=== PATIENT | female | born 1950 | race Caucasian/White ===

== ENCOUNTER 2018-03-05 11:42 | Emergency (ER) | payer BC, OTHER ==
[2018-03-05 12:16] VITALS: BP 124/71
--- NOTE | 2018-03-05 12:24 | UC ---
General HPI - HPI Summary HPI Summary: 2 CUTS ON R 5TH FINGER FROM A GLASS THAT BROKE. NO FB SENSATION OR LIMITED ROM. TETANUS WITHIN 10 YEARS. OCCURED GREEN PIPEFITTER. - History of Current Complaint Chief Complaint: UCLaceration Stated Complaint: RIGHT PINKY LACERATION Time Seen by Provider: 03/05/18 12:13 Hx Obtained From: Patient Hx Last Menstrual Period: n/a Onset/Duration: Sudden Onset Timing: Constant Pain Intensity: 1 - Allergy/Home Medications Allergies/Adverse Reactions: Allergies Allergy/AdvReac Type Severity Reaction Status Date / Time azithromycin Allergy Rash Verified 03/05/18 12:11 erythromycin base Allergy Rash Verified 03/05/18 12:11 Home Medications: Home Medications Albuterol HFA INHALER* [Ventolin HFA Inhaler*] 1 puff INH Q4H PRN 03/05/18 [ History Confirmed 03/05/18] Aspirin [Aspirin Childrens 81 MG] 81 mg PO DAILY 03/05/18 [History Confirmed ] PMH/Surg Hx/FS Hx/Imm Hx Cardiovascular History: Hypertension - Surgical History Surgical History: Yes Surgery Procedure, Year, and Place: 3 C-Sections. Herniorrhaphy, 1973 - Family History Known Family History: Positive: Cardiac Disease, Hypertension - Social History Lives: With Family Alcohol Use: Occasionally Substance Use Type: None Smoking Status (MU): Never Smoked Tobacco - Immunization History Most Recent Influenza Vaccination: December 2013 Most Recent Tetanus Shot: Unknown; pt will check Hx Tetanus, Diphtheria Vaccination: Yes - unsure of data will confirm with PCP on Saturday and update if needed Vaccination Up to Date: Yes Review of Systems All Other Systems Reviewed And Are Negative: Yes Constitutional: Positive: Negative Skin: Positive: Negative Eyes: Positive: Negative ENT: Positive: Negative Respiratory: Positive: Negative Cardiovascular: Positive: Negative Gastrointestinal: Positive: Negative Genitourinary: Positive: Negative Motor: Positive: Negative Neurovascular: Positive: Negative Musculoskeletal: Positive: Negative Neurological: Positive: Negative Psychological: Positive: Negative Physical Exam Triage Information Reviewed: Yes Appearance: Well-Appearing Vital Signs: Initial Vital Signs Temp 97.9 F 03/05/18 12:11 Pulse 76 03/05/18 12:11 Resp 15 03/05/18 12:11 BP 124/71 03/05/18 12:11 Pulse Ox 98 03/05/18 12:11 Vital Signs Reviewed: Yes Eyes: Positive: Conjunctiva Clear ENT: Positive: Normal ENT inspection Neck: Positive: Supple Respiratory: Positive: Lungs clear, Normal breath sounds Cardiovascular: Positive: RRR, No Murmur Abdomen Description: Positive: Nontender, No Organomegaly, Soft Bowel Sounds: Positive: Present Musculoskeletal: Positive: ROM Intact Neurological: Positive: Alert Psychological: Positive: Age Appropriate Behavior Skin Exam: Normal, Other - R 5TH FINGER ULNAR SIDE WITH 2 , 4MM SKIN AVULSIONS. THIN FLAP REMAINS OVER THE PROXIMAL INJURY. MILD BLEEDING. NO FB OR TENDON/ LIGAMNET INJURY. MILD VENOUS BLEEDING. Course/Dx - Course Course Of Treatment: PROCEDURE: TIME OUT. PREP BETADINE. LOCAL WITH 1 % LIDOCAINE. IRRIGATED STERILE NACL. PREP BETADINE, DRAP AND CLOSED WITH SINGLE PURSE STRING STITCH TO EACH SITE WITH NO BLEEDING AFTER. BACITRACIN TO WOUNDS THEN BANDAIDES. PT TOLERATED WELL. STERILE TECHNIQUE USED. - Differential Dx - Multi-Symptom Provider Diagnoses: 2 LACERATIONS R 5TH FINGER Discharge - Sign-Out/Discharge Documenting (check all that apply): Patient Departure All imaging exams completed and their final reports reviewed: No Studies - Discharge Plan Condition: Stable Disposition: HOME Patient Education Materials: Care For Your Stitches (ED) Referrals: Rafael Martinez MD [Primary Care Provider] - 7 Days Additional Instructions: OR RETURN HERE FOR SUTURE REMOVAL - Billing Disposition and Condition Condition: STABLE Disposition: Home
[2018-03-05] MEDS ORDERED: Tetan/Diph/Pertus SYR(Tdap)* 0.5 ML SYR(BOOSTRIX) use SYR IM ONE (12:26)
[2018-03-05] MEDS ORDERED: Lidocaine 1%* 5 ML VIAL INJ ONE (12:28)
== END 2018-03-05 12:59 | disposition home or self-care (01) ==
LOC: UCCORT 11:42
DX: S61.216A Laceration without foreign body of right little finger without damage to nail, initial encounter (principal); W25.XXXA Contact with sharp glass, initial encounter; Y92.9 Unspecified place or not applicable; I10 Essential (primary) hypertension; Z79.82 Long term (current) use of aspirin; Z88.1 Allergy status to other antibiotic agents
CPT/HCPCS: 12001; 99211; G0463

== ENCOUNTER 2018-03-13 07:23 | Emergency (ER) | payer BC ==
[2018-03-13 08:05] VITALS: BP 136/69
--- NOTE | 2018-03-13 08:16 | UC ---
HPI Wound/Suture Re-check - HPI Summary HPI Summary: The patient is a 67-year-old female that presents here for suture removal from her right little finger. Sutures have been in for 8 days. He states that the tip of her right little finger is numb and tingly but denies any other complaints. - History Of Current Complaint Chief Complaint: UCLaceration Stated Complaint: STITCH REMOVAL-DONE HERE Time Seen by Provider: 03/13/18 08:09 Hx Obtained From: Patient Hx Last Menstrual Period: n/a Onset/Duration: Sudden Onset Severity: Mild Pain Intensity: 0 Pain Scale Used: 0-10 Numeric - Allergies/Home Medications Allergies/Adverse Reactions: Allergies Allergy/AdvReac Type Severity Reaction Status Date / Time azithromycin Allergy Rash Verified 03/13/18 08:03 erythromycin base Allergy Rash Verified 03/13/18 08:03 PMH/Surg Hx/FS Hx/Imm Hx Previously Healthy: Yes Endocrine History: Dyslipidemia Cardiovascular History: Hypertension Respiratory History: COPD, Asthma - Surgical History Surgical History: Yes Surgery Procedure, Year, and Place: 3 C-Sections. Herniorrhaphy, 1973 - Family History Known Family History: Positive: Cardiac Disease, Hypertension - Social History Alcohol Use: Occasionally Substance Use Type: None Smoking Status (MU): Never Smoked Tobacco - Immunization History Most Recent Influenza Vaccination: December 2013 Most Recent Tetanus Shot: Unknown Hx Tetanus, Diphtheria Vaccination: Yes - unsure of data will confirm with PCP on Saturday and update if needed Vaccination Up to Date: Yes Review of Systems All Other Systems Reviewed And Are Negative: Yes Constitutional: Positive: Negative Skin: Positive: Negative Eyes: Positive: Negative ENT: Positive: Negative Respiratory: Positive: Negative Cardiovascular: Positive: Negative Gastrointestinal: Positive: Negative Genitourinary: Positive: Negative Motor: Positive: Negative Neurovascular: Positive: Decreased Sensation - RLF Musculoskeletal: Positive: Negative Neurological: Positive: Negative Psychological: Positive: Negative Physical Exam Triage Information Reviewed: Yes Appearance: Well-Appearing, No Pain Distress, Well-Nourished Vital Signs: Initial Vital Signs Temp 97.7 F 03/13/18 08:02 Pulse 79 03/13/18 08:02 Resp 16 03/13/18 08:02 BP 136/69 03/13/18 08:02 Pulse Ox 96 03/13/18 08:02 Vital Signs Reviewed: Yes Eyes: Positive: Conjunctiva Clear ENT: Positive: Hearing grossly normal. Negative: Nasal congestion, Nasal drainage, Trismus, Muffled voice Neck exam: Normal Neck: Positive: Supple, Nontender, No Lymphadenopathy Respiratory: Positive: Lungs clear, Normal breath sounds, No respiratory distress Cardiovascular: Positive: RRR, No Murmur Skin Exam: Other - healing RLF lacs Course/Dx - Course Course Of Treatment: 2 pursestring sutures were removed. The patient was advised she might have a distal digital nerve injury of her right little finger. I informed her she would otherwise have some decreased sensation there. She did have 2 point discrimination. - Diagnosis Provider Diagnosis: Sutured skin wound Discharge - Sign-Out/Discharge Documenting (check all that apply): Patient Departure All imaging exams completed and their final reports reviewed: No Studies - Discharge Plan Condition: Stable Disposition: HOME Referrals: Rafael Martinez MD [Primary Care Provider] - Additional Instructions: call for any questions return for any problems - Billing Disposition and Condition Condition: STABLE Disposition: Home
== END 2018-03-13 08:25 | disposition home or self-care (01) ==
LOC: UCCORT 07:23
DX: S61.216D Laceration without foreign body of right little finger without damage to nail, subsequent encounter (principal); X58.XXXD Exposure to other specified factors, subsequent encounter; Z88.1 Allergy status to other antibiotic agents